=== PATIENT | male | born 1975 | race Caucasian/White ===

== ENCOUNTER 2019-10-17 17:00 | Emergency (ER) | payer BC ==
[2019-10-17] MEDS: Sodium Chloride 0.9% 1,000 ML IV ONE ×2 (17:25→18:30)
--- NOTE | 2019-10-17 17:34 | EDM.PDOC ---
ED HPI GENERAL MEDICAL PROBLEM - General Chief Complaint: General Stated Complaint: ATTEMPTED SUICIDE Time Seen by Provider: 10/17/19 16:50 Source of Information: Reports: Patient History Limitations: Reports: No Limitations - History of Present Illness INITIAL COMMENTS - FREE TEXT/NARRATIVE: Zay presents with law enforcement after being contacted by his reina due to concern for his wellbeing. He is adamant that he is not suicidal. Admits to drinking today. Report was he allegedly jumped out of a second story window onto soft snow. He emphatically denies this. Understands that his friend was concerned for him, and seems appreciative of this. Denies any intent to harm himself ever. No current medications. Denies h/o medical issues. No recent illness or fevers. Denies any ingestion. States he will be cooperative in terms of undergoing psych eval per [facility]. No other issues and no warrant for arrest or legal ramifications. States he drove up with his workers from [place] in his work truck. His phone is down to 1%. Requesting [employer] so that he can arrange for transportation. - Related Data Allergies Allergy/AdvReac Type Severity Reaction Status Date / Time amoxicillin Allergy Hives Verified 10/17/19 18:10 ED ROS GENERAL - Review of Systems Review Of Systems: Comprehensive ROS is negative, except as noted in HPI. ED EXAM, GENERAL - Physical Exam Exam: See Below Exam Limited By: No Limitations (appears stressed; but thought process organized and no signs of cailin or psychosis) General Appearance: Alert, WD/WN, No Apparent Distress Eye Exam: Bilateral Eye: EOMI, PERRL Ears: Normal External Exam, Hearing Grossly Normal Nose: Normal Inspection Throat/Mouth: Normal Inspection, Normal Lips, Normal Voice Head: Atraumatic, Normocephalic Neck: Normal Inspection, Supple, Non-Tender, Full Range of Motion Respiratory/Chest: No Respiratory Distress, Lungs Clear, Normal Breath Sounds. No: Crackles, Rales, Rhonchi, Wheezing Cardiovascular: Regular Rate, Rhythm. No: No Gallop, No Murmur, No Rub GI/Abdominal: Normal Bowel Sounds, Soft, Non-Tender Back Exam: Normal Inspection Extremities: Normal Inspection, Normal Capillary Refill Neurological: Alert, Oriented, Normal Cognition, Normal Gait, No Motor/Sensory Deficits Psychiatric: Anxious, Depressed Mood Skin Exam: Warm, Dry, Intact Lymphatic: No Adenopathy Course - Vital Signs Text/Narrative:: Zay was provided with IV fluids and slept despite CPR occurring in the next bay. [facility] was contacted, and they concur Zay is at acceptable risk for continued outpatient management. Appreciate law enforcement for helping to secure transportation to discharge him to the care of a sober individual to continue to monitor the situation. Last Recorded V/S: Last Vital Signs Temp 97.8 F 10/17/19 17:18 Pulse 88 10/17/19 17:18 Resp 20 10/17/19 17:18 BP 151/100 H 10/17/19 17:18 Pulse Ox 97 10/17/19 17:18 - Orders/Labs/Meds Labs: Laboratory Tests 10/17/19 10/17/19 10/17/19 Range/Units 16:57 16:57 17:55 WBC 12.5 H (4.0-11.0) K/uL RBC 5.40 (4.50-6.50) M/uL Hgb 16.1 (13.0-18.0) g/dL Hct 46.8 (40.0-54.0) % MCV 87 (76-96) fL MCH 29.8 (27.0-32.0) pg MCHC 34.4 (31.0-35.0) g/dL RDW 14.2 (11.0-16.0) % Plt Count 268 (150-400) K/uL MPV 9.0 (6.0-10.0) fL Neut % (Auto) 75.1 H (45.0-70.0) % Lymph % (Auto) 18.0 L (20.0-40.0) % Long % (Auto) 5.9 (3.0-10.0) % Eos % (Auto) 0.4 L (1.0-5.0) % Baso % (Auto) 0.6 H (0.0-0.5) % Neut # (Auto) 9.40 H (2.00-7.50) K/uL Lymph # (Auto) 2.26 (1.50-4.00) K/uL Long # (Auto) 0.74 (0.20-0.80) K/uL Eos # (Auto) 0.05 (0.04-0.40) K/uL Baso # (Auto) 0.08 (0.02-0.10) K/uL Sodium 143 (136-145) mmol/L Potassium 3.6 (3.5-5.1) mmol/L Chloride 103 (98-107) mmol/L Carbon Dioxide 29.6 (21.0-32.0) mmol/L Anion Gap 14.0 (5.0-15.0) mmol/L BUN 9 (8-26) mg/dL Creatinine 0.88 (0.70-1.30) mg/dL Est Cr Clr Drug Dosing 112.91 mL/min Estimated GFR (MDRD) > 60 (>60) MLS/MIN BUN/Creatinine Ratio 10.2 (6-25) Glucose 97 (74-100) mg/dL Calcium 8.3 L (8.5-10.1) mg/dL Total Bilirubin 0.6 (0.0-1.0) mg/dL AST 53 H (15-37) U/L ALT 38 (12-78) U/L Alkaline Phosphatase 45 L (46-116) U/L Total Protein 7.8 (6.4-8.2) g/dL Albumin 4.4 (3.4-5.0) g/dL Globulin 3.4 (2.2-4.2) g/dL Albumin/Globulin Ratio 1.3 (0.8-2.0) TSH, Ultra Sensitive 0.650 (0.358-3.740) uIU/mL Urine Opiates Screen Negative (NEGATIVE) Ur Oxycodone Screen Negative (NEGATIVE) Urine Methadone Screen Negative (NEGATIVE) Ur Barbiturates Screen Negative (NEGATIVE) Ur Tricyclics Screen Positive H (NEGATIVE) Ur Phencyclidine Scrn Negative (NEGATIVE) Ur Amphetamine Screen Negative (NEGATIVE) U Methamphetamines Scrn Negative (NEGATIVE) Urine MDMA Screen Negative (NEGATIVE) U Benzodiazepines Scrn Negative (NEGATIVE) U Cocaine Metab Screen Positive H (NEGATIVE) U Marijuana (THC) Screen Negative (NEGATIVE) Ethyl Alcohol 233.0 H (<3.0) mg/dL Meds: Medications Discontinued Medications Generic Name Dose Route Start Last Admin Trade Name Freq PRN Reason Stop Dose Admin Sodium Chloride 1,000 mls @ 999 mls/hr 10/17/19 18:10 10/17/19 18:30 Normal Saline IV 10/17/19 19:10 999 mls/hr .BOLUS ONE Administration Departure - Departure Time of Disposition: 21:00 Disposition: Home, Self-Care 01 Condition: Fair Clinical Impression: Alcohol intoxication Qualifiers: Complication of substance-induced condition: with unspecified complication Qualified Code(s): F10.929 - Alcohol use, unspecified with intoxication, unspecified - Discharge Information Instructions: Alcohol Intoxication, [id number] Referrals: PCP,None [Primary Care Provider] - Forms: ED Department Discharge Additional Instructions: Return with any problems or thoughts of self-harm. See your physician when you get home. Good luck with everything. Sepsis Event Note - Focused Exam Vital Signs: Vital Signs Temp Pulse Resp BP Pulse Ox 10/17/19 17:18 97.8 F 88 20 151/100 H 97 10/17/19 17:00 97.6 F 88 20 151/100 H 97 Date Exam was Performed: 10/17/19 Time Exam was Performed: 20:53
== END 2019-10-17 21:11 | disposition home or self-care (01) ==
LOC: LB.ED 17:00 → EEVIPCON 17:00 → LB.ED 21:11
DX: F10.929 Alcohol use, unspecified with intoxication, unspecified (principal); Z88.0 Allergy status to penicillin
CPT/HCPCS: 36415; 80053; 80307; 84443; 85025; 96360; 96361; 99284; J7030